=== PATIENT | male | born 1985 | race Caucasian/White ===

== ENCOUNTER 2017-04-02 18:32 | Emergency (ER) | payer SELFPAY ==
[~2017-04-02] VITALS: Ht 180.3 cm; Wt 96.6 kg
[2017-04-02] MEDS ORDERED: GLYCERIN ADULT 1 SUPP.RECT. PR ONE (19:30)
[2017-04-02] MEDS ORDERED: MAGNESIUM CITRATE 296 ML SOLUTION. PO ONE (19:30)
[2017-04-02] MEDS ORDERED: LIDO:MAALOX 1:1 20 ML SINGLE DOSE PO ONE (19:30)
--- NOTE | 2017-04-02 20:40 | PHYS DOC ---
Adult General Chief Complaint Chief Complaint: CONSTIPATION HPI HPI Patient is a 31-year-old male presenting to the emergency department for evaluation of lower abdominal pain rectal pressure. Patient says that the symptoms have been going on for at least several days and causes him significant discomfort and he feels that he cannot have a bowel movement. He has not had a bowel movement in approximately 2-3 days may be small estee but nothing significant. Patient denies any fevers chills nausea vomiting black or bloody stools difficulty urinating. He is in no obvious distress with normal vital signs. Review of Systems Review of Systems Constitutional: Denies fever or chills [] Eyes: Denies change in visual acuity, redness, or eye pain [] HENT: Denies nasal congestion or sore throat [] Respiratory: Denies cough or shortness of breath [] Cardiovascular: No additional information not addressed in HPI [] GI: + abdominal pain. No nausea, vomiting, bloody stools or diarrhea [] : Denies dysuria or hematuria [] Musculoskeletal: Denies back pain or joint pain [] Integument: Denies rash or skin lesions [] Neurologic: Denies headache, focal weakness or sensory changes [] All other systems were reviewed and found to be within normal limits, except as documented in this note. Current Medications Current Medications Current Medications Medications (Trade) Dose Ordered Sig/Michael Start Time Stop Time Status Last Admin Dose Admin Fentanyl Citrate (Fentanyl 2ml Vial) 75 mcg 1X ONCE 04/02/17 20:45 04/02/17 20:46 Glycerin (Sani-Supp Adult) 1 supp 1X ONCE 04/02/17 19:30 04/02/17 19:31 DC 04/02/17 19:42 1 SUPP Ketorolac Tromethamine (Toradol) 30 mg 1X ONCE 04/02/17 20:45 04/02/17 20:46 Magnesium Citrate (Citroma) 296 ml 1X ONCE 04/02/17 19:30 04/02/17 19:31 DC 04/02/17 19:42 296 ML Multi-Ingredient Mouthwash/Gargle (Gi Cocktail) 20 ml 1X ONCE 04/02/17 19:30 04/02/17 19:31 DC 04/02/17 19:42 20 ML Allergies Allergies Allergies Coded Allergies Type Severity Reaction Last Updated Verified No Known Drug Allergies 04/02/17 No Physical Exam Physical Exam Constitutional: Well developed, well nourished, no acute distress, non-toxic appearance. [] HENT: Normocephalic, atraumatic, bilateral external ears normal, oropharynx moist, no oral exudates, nose normal. [] Eyes: PERRLA, EOMI, conjunctiva normal, no discharge. [] Neck: Normal range of motion, no tenderness, supple, no stridor. [] Cardiovascular:Heart rate regular rhythm, no murmur [] Lungs & Thorax: Bilateral breath sounds clear to auscultation [] Abdomen: Bowel sounds normal, soft, no tenderness, no masses, no pulsatile masses. Rectal examination revealed empty vault with no obvious impaction he did have tenderness with palpation internally but there is no external hemorrhoids or fissure noted. No gross blood Skin: Warm, dry, no erythema, no rash. [] Back: No tenderness, no CVA tenderness. [] Extremities: No tenderness, no cyanosis, no clubbing, ROM intact, no edema. [] Neurologic: Alert and oriented X 3, normal motor function, normal sensory function, no focal deficits noted. [] EKG EKG [] Radiology/Procedures Radiology/Procedures CT abdomen and pelvis with contrast TECHNIQUE: Helical CT imaging of the abdomen and pelvis was acquired with 75 mL Omnipaque 300 intravenous contrast. HISTORY: Lower abdominal pain and constipation. Abdomen findings: Small calcified granuloma right lung base. Disc height loss and disc bulges lower lumbar spine. Lung bases unremarkable. Nonspecific 1 cm hypodense lesion segment 7 of the liver. There may be a small 3 mm right renal lower pole calculus. Gallbladder, pancreas, spleen, adrenals and kidneys are unremarkable. The appendix is negative. No obstruction or inflammatory change of the GI tract. Pelvis findings: Bladder, prostate, rectum and bones are unremarkable. No fluid or adenopathy. IMPRESSION: 1. No acute process. The appendix is negative. 2. 3 mm nonobstructing right renal calculus. 3. Nonspecific 1 cm mildly hypodense lesion of the right hepatic lobe. Exposure: One or more of the following individualized dose reduction techniques were utilized for this examination: 1. Automated exposure control 2. Adjustment of the mA and/or kV according to patient size 3. Use of iterative reconstruction technique Electronically signed by: Fransico Vaughn MD (04/02/2017 10:15 PM) [facility] DICTATED AND SIGNED BY: FRANSICO VAUGHN MD DATE: 04/02/172208 Course & Med Decision Making Course & Med Decision Making Patient has nonspecific symptoms and was thinking morbid impaction however his exam is unremarkable and his acute abdominal series is unremarkable as well. He is still having pain and discomfort so I will need to expand my workup so he will get labs CT treat symptoms and reassess. Patient feeling much better after Toradol and fentanyl and the emergency Department however he says he still feels some pressure sensation that is constant but can become more intense. He is had several bowel movements in the emergency department he says that made him feel somewhat better. His workup is rather unremarkable including no acute causes and no surgical pathology. Patient may be suffering from proctalgia fugax given his complaints are more rectal than abdominal. Patient will be treated supportively as an outpatient with Valium NSAIDs told to follow with primary care provider and I will give him information for GI physician and colorectal surgeon. Patient aware and agreeable with plan for discharge and verbalized understanding of the need for short-term follow-up and strict ED return precautions discussed, worsening pain fevers vomiting or other general concerns. Dragon Disclaimer Dragon Disclaimer This electronic medical record was generated, in whole or in part, using a voice recognition dictation system. Departure Departure: Impression: Primary Impression: Abdominal pain Additional Impression: Rectal pain Disposition: 01 HOME, SELF-CARE Condition: STABLE Referrals: FELICITY HERNANDEZ MD Patient Instructions: Proctalgia Fugax Additional Instructions: Take 400 mg of ibuprofen every 6 hours. The Valium may help with spasm. Eat a soft nonirritating diet and follow with a primary care provider and try and follow up with the specialist's I recommended. Come back to the emergency department with worsening pain fevers vomiting or other general concerns. Scripts Diazepam (VALIUM) 5 Mg Tablet 5 MG PO TID for SPASM, #10 TAB Prov: JUNG MEEKS DO 04/02/17 Problem Qualifiers Primary Impression: Abdominal pain Abdominal location: lower abdomen, unspecified Qualified Codes: R10.30 - Lower abdominal pain, unspecified JUNG MEEKS DO Apr 02, 2017 20:40
[2017-04-02] MEDS ORDERED: KETOROLAC 30 MG/ML VIAL. IV ONE (20:45)
[2017-04-02 21:15] LABS: BASO # 0.1 x10^3/uL (0.0-0.2); BASO % 1 % (0-3); EOS # 0.2 x10^3/uL (0.0-0.7); EOS % 2 % (0-3); HEMOGLOBIN 14.6 g/dL (13.0-17.5); LYMPH # 1.9 x10^3/uL (1.0-4.8); LYMPH % 22 % (24-48); MEAN CORPUSCULAR HEMOGLOBIN 31 pg (25-35); MEAN CORPUSCULAR HGB CONC 35 g/dL (31-37); MEAN CORPUSCULAR VOLUME 90 fL (79-100); MONO # 0.7 x10^3/uL (0.0-1.1); MONO % 8 % (0-9); NEUT # 5.8 x10^3uL (1.8-7.7); NEUT % 67 % (31-73); PLATELET COUNT 256 x10^3/uL (140-400); RED BLOOD COUNT 4.68 x10^6/uL (4.30-5.70); WHITE BLOOD COUNT 8.6 x10^3/uL (4.0-11.0)
[2017-04-02 21:29] LABS: ALBUMIN 3.7 g/dL (3.4-5.0); CALCIUM 8.8 mg/dL (8.5-10.1); GFR 86.1; POTASSIUM 3.7 mmol/L (3.5-5.1); TOTAL BILIRUBIN 0.1 mg/dL (0.2-1.0); TOTAL PROTEIN 7.5 g/dL (6.4-8.2)
[2017-04-02] MEDS ORDERED: CONTRAST GIVEN MC PRN (21:30)
[2017-04-02 21:43] LABS: BACTERIA,URINE 0 /HPF (0-FEW); BILIRUBIN,URINE NEG (NEG); CLARITY,URINE CLEAR; COLOR,URINE YELLOW; GLUCOSE,URINE NEG (NEG); NITRITE,URINE NEG (NEG); UROBILINOGEN,URINE 0.2 mg/dL (0.2 mg/dL); WBC,URINE OCC /HPF (0-4)
[2017-04-02 21:44] LABS: SQUAMOUS EPITHELIAL CELL,UR FEW /LPF
[2017-04-02] MEDS ORDERED: IOHEXOL 300 MG/ML 75 ML VIAL. IV ONE (21:45)
--- NOTE | 2017-04-02 22:18 | RAD ---
CT abdomen and pelvis with contrast TECHNIQUE: Helical CT imaging of the abdomen and pelvis was acquired with 75 mL Omnipaque 300 intravenous contrast. HISTORY: Lower abdominal pain and constipation. Abdomen findings: Small calcified granuloma right lung base. Disc height loss and disc bulges lower lumbar spine. Lung bases unremarkable. Nonspecific 1 cm hypodense lesion segment 7 of the liver. There may be a small 3 mm right renal lower pole calculus. Gallbladder, pancreas, spleen, adrenals and kidneys are unremarkable. The appendix is negative. No obstruction or inflammatory change of the GI tract. Pelvis findings: Bladder, prostate, rectum and bones are unremarkable. No fluid or adenopathy. IMPRESSION: 1. No acute process. The appendix is negative. 2. 3 mm nonobstructing right renal calculus. 3. Nonspecific 1 cm mildly hypodense lesion of the right hepatic lobe. Exposure: One or more of the following individualized dose reduction techniques were utilized for this examination: 1. Automated exposure control 2. Adjustment of the mA and/or kV according to patient size 3. Use of iterative reconstruction technique Electronically signed by: Johnny Vaughn MD (04/02/2017 10:15 PM) [facility]
[2017-04-02] MEDS ORDERED: DIAZ5TAB PO (23:17)
[2017-04-02 23:30] VITALS: BP 120/72
--- NOTE | 2017-04-03 08:22 | RAD ---
Abdominal series including frontal chest radiograph and 3 views of the abdomen 04/02/2017 Indication: Abdominal pain. Constipation. Onset today Comparison study: None Discussion: The lungs are clear. No pneumothorax, effusion, or infiltrate is seen. Heart size is normal. The bowel gas pattern is nonobstructive. No gross pneumoperitoneum is identified. No pathologic calcifications are appreciated. No acute osseous changes are identified. Impression: No radiographic evidence of acute cardiopulmonary or intra-abdominal process
== END 2017-04-02 23:30 | disposition home or self-care (01) ==
LOC: ER 18:32
DX: R10.30 Lower abdominal pain, unspecified (principal); K62.89 Other specified diseases of anus and rectum
CPT/HCPCS: 36415; 74022; 74177; 80053; 81001; 83690; 85025; 96374; 96375; 99285; J1885; J3010; Q9967

== ENCOUNTER 2018-08-06 23:27 | Emergency (ER) | payer SELFPAY ==
[~2018-08-06] VITALS: Ht 177.8 cm; Wt 76.2 kg
[~2018-08-06 23:27] MED LIST: DIAZ5TAB PO
--- NOTE | 2018-08-06 23:30 | ED.ADGEN ---
Past History Past Medical History: Constipation, GERD Past Surgical History: No Surgical History Alcohol Use: Occasionally Drug Use: None Adult General Chief Complaint Chief Complaint ".. I am hurting in my lower mid abdomen.. it been going on a few days.. " HPI HPI Patient is a 32 year old male who presents with above hx and complaints mid and right lower abd. pain . Patient denies any trauma. Patient denies any specific intake of bad food or ill contacts. Patient denies any travel. Patient denies any history immunosuppression. Patient has had episodes in past which was caused by constipation. Patient denies any history immunosuppression. Patient is normally healthy. Patient follows with Review of Systems Review of Systems Constitutional: Denies fever or chills [] Eyes: Denies change in visual acuity, redness, or eye pain [] HENT: Denies nasal congestion or sore throat [] Respiratory: Denies cough or shortness of breath [] Cardiovascular: No additional information not addressed in HPI [] GI: Complains of abdominal pain, nausea. Denies, vomiting, bloody stools or diarrhea [] : Denies dysuria or hematuria [] Musculoskeletal: Denies back pain or joint pain [] Integument: Denies rash or skin lesions [] Neurologic: Denies headache, focal weakness or sensory changes [] Endocrine: Denies polyuria or polydipsia [] All other systems were reviewed and found to be within normal limits, except as documented in this note. Family History Family History Noncontributory Current Medications Current Medications Current Medications Medications (Trade) Dose Ordered Sig/Michael Start Time Stop Time Status Last Admin Dose Admin Famotidine (Pepcid Vial) 20 mg 1X ONCE 08/06/18 23:45 08/06/18 23:46 DC 08/07/18 00:17 20 MG Info (Do NOT chart on this entry -- for MONITORING) 1 each PRN DAILY PRN 08/07/18 03:00 08/07/18 05:26 DC Iohexol (Omnipaque 240 Mg/ml) 50 ml 1X ONCE 08/07/18 02:45 08/07/18 02:50 DC 08/07/18 03:02 50 ML Iohexol (Omnipaque 300 Mg/ml) 75 ml 1X ONCE 08/07/18 02:45 08/07/18 02:50 DC 08/07/18 03:02 75 ML Ketorolac Tromethamine (Toradol 30mg Vial) 30 mg 1X ONCE 08/06/18 23:45 08/06/18 23:46 DC 08/07/18 00:17 30 MG Lactated Ringer's 1,000 ml @ 1,000 mls/hr Q1H 08/06/18 23:45 08/07/18 00:44 DC 08/07/18 00:16 1,000 MLS/HR Magnesium Hydroxide (Milk Of Magnesia) 2,400 mg 1X ONCE 08/06/18 23:45 08/06/18 23:46 DC 08/07/18 00:16 2,400 MG Magnesium Citrate (Citroma) 296 ml 1X ONCE 08/07/18 04:30 08/07/18 04:31 DC 08/07/18 04:58 296 ML Ondansetron HCl (Zofran) 8 mg 1X ONCE 08/06/18 23:45 08/06/18 23:46 DC 08/07/18 00:18 8 MG Allergies Allergies Allergies Coded Allergies Type Severity Reaction Last Updated Verified No Known Drug Allergies 04/02/17 No Physical Exam Physical Exam Constitutional: Well developed, well nourished, mild distress, non-toxic appearance. [] HENT: Normocephalic, atraumatic, bilateral external ears normal, oropharynx moist, no oral exudates, nose normal. [] Eyes: PERRLA, EOMI, conjunctiva normal, no discharge. [] Neck: Normal range of motion, no tenderness, supple, no stridor. [] Cardiovascular:Heart rate regular rhythm, no murmur [] Lungs & Thorax: Bilateral breath sounds clear to auscultation [] Abdomen: Bowel sounds normal, soft, mild generalized mid abdomen tenderness, no masses, no pulsatile masses. [] Distended. Patient declines rectal exam at this time. Skin: Warm, dry, no erythema, no rash. [] Back: No tenderness, no CVA tenderness. [] Extremities: No tenderness, no cyanosis, no clubbing, ROM intact, no edema. [] No psoas sign Neurologic: Alert and oriented X 3, normal motor function, normal sensory function, no focal deficits noted. [] Psychologic: Affect normal, judgement normal, mood normal. [] Current Patient Data Lab Results Laboratory Tests Test 08/07/18 00:05 08/07/18 01:15 White Blood Count 7.8 x10^3/uL (4.0-11.0) Red Blood Count 4.98 x10^6/uL (4.30-5.70) Hemoglobin 15.2 g/dL (13.0-17.5) Hematocrit 44.4 % (39.0-53.0) Mean Corpuscular Volume 89 fL (79-100) Mean Corpuscular Hemoglobin 31 pg (25-35) Mean Corpuscular Hemoglobin Concent 34 g/dL (31-37) Red Cell Distribution Width 12.9 % (11.5-14.5) Platelet Count 244 x10^3/uL (140-400) Neutrophils (%) (Auto) 73 % (31-73) Lymphocytes (%) (Auto) 15 % (24-48) L Monocytes (%) (Auto) 10 % (0-9) H Eosinophils (%) (Auto) 1 % (0-3) Basophils (%) (Auto) 1 % (0-3) Neutrophils # (Auto) 5.7 x10^3uL (1.8-7.7) Lymphocytes # (Auto) 1.2 x10^3/uL (1.0-4.8) Monocytes # (Auto) 0.7 x10^3/uL (0.0-1.1) Eosinophils # (Auto) 0.1 x10^3/uL (0.0-0.7) Basophils # (Auto) 0.1 x10^3/uL (0.0-0.2) Prothrombin Time 10.6 SEC (9.4-11.4) Prothrombin Time INR 1.1 (0.9-1.1) PTT 29 SEC (23-33) Sodium Level 139 mmol/L (136-145) Potassium Level 3.5 mmol/L (3.5-5.1) Chloride Level 103 mmol/L (98-107) Carbon Dioxide Level 25 mmol/L (21-32) Anion Gap 11 (6-14) Blood Urea Nitrogen 8 mg/dL (8-26) Creatinine 1.2 mg/dL (0.7-1.3) Estimated GFR (Cockcroft-Gault) 69.3 Glucose Level 120 mg/dL (70-99) H Calcium Level 9.1 mg/dL (8.5-10.1) Total Bilirubin 0.4 mg/dL (0.2-1.0) Direct Bilirubin 0.1 mg/dL (0.0-0.2) Aspartate Amino Transferase (AST) 12 U/L (15-37) L Alanine Aminotransferase (ALT) 20 U/L (16-63) Alkaline Phosphatase 81 U/L (46-116) Troponin I Quantitative < 0.017 ng/mL (0-0.055) Total Protein 6.6 g/dL (6.4-8.2) Albumin 3.4 g/dL (3.4-5.0) Amylase Level 17 U/L (25-115) L Lipase 97 U/L (73-393) Urine Collection Type Unknown Urine Color Yellow Urine Clarity Clear Urine pH 6.0 Urine Specific [place] 1.025 Urine Protein Trace (NEG-TRACE) Urine Glucose (UA) Neg mg/dL (NEG) Urine Ketones (Stick) Trace mg/dL (NEG) Urine Blood Neg (NEG) Urine Nitrite Neg (NEG) Urine Bilirubin Neg (NEG) Urine Urobilinogen Dipstick 2 mg/dL (0.2 mg/dL) Urine Leukocyte Esterase Neg (NEG) Urine RBC 0 /HPF (0-2) Urine WBC Occ /HPF (0-4) Urine Squamous Epithelial Cells Occ /LPF Urine Bacteria 0 /HPF (0-FEW) Urine Opiates Screen Neg (NEG) Urine Methadone Screen Neg (NEG) Urine Barbiturates Neg (NEG) Urine Phencyclidine Screen Neg (NEG) Urine Amphetamine/Methamphetamine Pos (NEG) Urine Benzodiazepines Screen Neg (NEG) Urine Cocaine Screen Neg (NEG) Urine Cannabinoids Screen Neg (NEG) Urine Ethyl Alcohol Neg (NEG) EKG EKG [] Radiology/Procedures Radiology/Procedures My interpretation of acute abdomen film shows no acute cardiopulmonary findings. Does have stool in colon. Nonobstructive bowel gas pattern CT of abdomen showed no gross acute surgical processes. See formal report when available[] [address] [id number] IMAGING REPORT Signed PATIENT: MAXX MORIN ACCOUNT: [id number] : 1985 LOCATION: ER AGE: 32 SEX: M EXAM STATUS: REG ER ORD. PHYSICIAN: YOLIE OLIVEIRA MD REASON: abdomen pain PROCEDURE: CT ABD PELV W/ORAL&IV CONTRAST CT abdomen and pelvis with contrast: Reason for examination: Abdominal pain. Helical images were obtained through the abdomen pelvis with intravenous administration of 75 cc Omnipaque 300 and oral contrast. Reconstruction was performed in sagittal and coronal planes. Exposure: One or more of the following individualized dose reduction techniques were utilized for this examination: 1. Automated exposure control 2. Adjustment of the mA and/or kV according to patient size 3. Use of iterative reconstruction technique. The lung bases are clear. The heart size is normal with no pericardial effusion evident. The liver show small hypodense lesions probably representing cysts in the right lobe measuring 5.4 and 9.5 mm in size. No abnormality seen at the spleen, adrenal glands, pancreas or gallbladder. The abdominal aorta and inferior vena cava show no acute abnormalities. The colon shows no diverticulosis or diverticulitis or colitis. No abnormality seen at the appendix. The small intestinal tract shows no abnormal dilatation or wall thickening and no obstruction. No abnormality seen at the stomach but there is a large amount of gastric content present. The kidneys show no renal masses, renal calculi, hydronephrosis or evidence of obstructive uropathy. No abnormality seen at the bladder, prostate gland or seminal vesicles. No free fluid or free air is seen in the abdomen or pelvis. IMPRESSION: Small subcentimeter hypodense lesions probably representing cysts in the liver. Large amount of gastric content. No bowel obstruction. No abnormality at the appendix. No obstructive uropathy. Electronically signed by: Yamileth Cristina MD (08/07/2018 4:07 AM) [facility] Course & Med Decision Making Course & Med Decision Making Pertinent Labs and Imaging studies reviewed. (See chart for details) A she encouraged to remain on a clear fluid diet only until stooling regularly. Push clear fluids. No solids or milk products for the next 2 days. Must allow bowel rest. Return if any concerns. Follow-up primary care.. [] Final Impression Final Impression 1. Abdomen pain 2. Dehydration[] 3. Constipation 4. Mildly elevated glucose 120 Dragon Disclaimer Dragon Disclaimer This electronic medical record was generated, in whole or in part, using a voice recognition dictation system. Discharge Summary Visit Information Final Diagnosis Problems Medical Problems: (1) Constipation Status: Acute (2) Pain in the abdomen Status: Acute Brief Hospital Course Allergies Allergies Coded Allergies Type Severity Reaction Last Updated Verified No Known Drug Allergies 04/02/17 No Lab Results Laboratory Tests Test 08/07/18 00:05 08/07/18 01:15 White Blood Count 7.8 x10^3/uL (4.0-11.0) Red Blood Count 4.98 x10^6/uL (4.30-5.70) Hemoglobin 15.2 g/dL (13.0-17.5) Hematocrit 44.4 % (39.0-53.0) Mean Corpuscular Volume 89 fL (79-100) Mean Corpuscular Hemoglobin 31 pg (25-35) Mean Corpuscular Hemoglobin Concent 34 g/dL (31-37) Red Cell Distribution Width 12.9 % (11.5-14.5) Platelet Count 244 x10^3/uL (140-400) Neutrophils (%) (Auto) 73 % (31-73) Lymphocytes (%) (Auto) 15 % (24-48) Monocytes (%) (Auto) 10 % (0-9) Eosinophils (%) (Auto) 1 % (0-3) Basophils (%) (Auto) 1 % (0-3) Neutrophils # (Auto) 5.7 x10^3uL (1.8-7.7) Lymphocytes # (Auto) 1.2 x10^3/uL (1.0-4.8) Monocytes # (Auto) 0.7 x10^3/uL (0.0-1.1) Eosinophils # (Auto) 0.1 x10^3/uL (0.0-0.7) Basophils # (Auto) 0.1 x10^3/uL (0.0-0.2) Prothrombin Time 10.6 SEC (9.4-11.4) Prothromb Time International Ratio 1.1 (0.9-1.1) Activated Partial Thromboplast Time 29 SEC (23-33) Sodium Level 139 mmol/L (136-145) Potassium Level 3.5 mmol/L (3.5-5.1) Chloride Level 103 mmol/L (98-107) Carbon Dioxide Level 25 mmol/L (21-32) Anion Gap 11 (6-14) Blood Urea Nitrogen 8 mg/dL (8-26) Creatinine 1.2 mg/dL (0.7-1.3) Estimated GFR (Cockcroft-Gault) 69.3 Glucose Level 120 mg/dL (70-99) Calcium Level 9.1 mg/dL (8.5-10.1) Total Bilirubin 0.4 mg/dL (0.2-1.0) Direct Bilirubin 0.1 mg/dL (0.0-0.2) Aspartate Amino Transf (AST/SGOT) 12 U/L (15-37) Alanine Aminotransferase (ALT/SGPT) 20 U/L (16-63) Alkaline Phosphatase 81 U/L (46-116) Troponin I Quantitative < 0.017 ng/mL (0-0.055) Total Protein 6.6 g/dL (6.4-8.2) Albumin 3.4 g/dL (3.4-5.0) Amylase Level 17 U/L (25-115) Lipase 97 U/L (73-393) Urine Collection Type Unknown Urine Color Yellow Urine Clarity Clear Urine pH 6.0 Urine Specific [place] 1.025 Urine Protein Trace (NEG-TRACE) Urine Glucose (UA) Neg mg/dL (NEG) Urine Ketones (Stick) Trace mg/dL (NEG) Urine Blood Neg (NEG) Urine Nitrite Neg (NEG) Urine Bilirubin Neg (NEG) Urine Urobilinogen Dipstick 2 mg/dL (0.2 mg/dL) Urine Leukocyte Esterase Neg (NEG) Urine RBC 0 /HPF (0-2) Urine WBC Occ /HPF (0-4) Urine Squamous Epithelial Cells Occ /LPF Urine Bacteria 0 /HPF (0-FEW) Urine Opiates Screen Neg (NEG) Urine Methadone Screen Neg (NEG) Urine Barbiturates Neg (NEG) Urine Phencyclidine Screen Neg (NEG) Urine Amphetamine/Methamphetamine Pos (NEG) Urine Benzodiazepines Screen Neg (NEG) Urine Cocaine Screen Neg (NEG) Urine Cannabinoids Screen Neg (NEG) Urine Ethyl Alcohol Neg (NEG) Brief Hospital Course Mr. Morin is a 32 old male who presented with abdomen pain. Suspect constipation- Discharge Information Condition at Discharge: Improved, Stable Disposition/Orders: D/C to Home Dischare Medications Current Medications Lactated Ringer's 1,000 ml @ 1,000 mls/hr Q1H IV Last administered on 08/07/18at 00:16; Admin Dose 1,000 MLS/HR; Start 08/06/18 at 23:45; Stop 08/07/18 at 00:44; Status DC Ondansetron HCl (Zofran) 8 mg 1X ONCE IV Last administered on 08/07/18at 00:18; Admin Dose 8 MG; Start 08/06/18 at 23:45; Stop 08/06/18 at 23:46; Status DC Famotidine (Pepcid Vial) 20 mg 1X ONCE IVP Last administered on 08/07/18at 00:17; Admin Dose 20 MG; Start 08/06/18 at 23:45; Stop 08/06/18 at 23:46; Status DC Ketorolac Tromethamine (Toradol 30mg Vial) 30 mg 1X ONCE IV Last administered on 08/07/18at 00:17; Admin Dose 30 MG; Start 08/06/18 at 23:45; Stop 08/06/18 at 23:46; Status DC Magnesium Hydroxide (Milk Of Magnesia) 2,400 mg 1X ONCE PO Last administered on 08/07/18at 00:16; Admin Dose 2,400 MG; Start 08/06/18 at 23:45; Stop 08/06/18 at 23:46; Status DC Iohexol (Omnipaque 300 Mg/ml) 75 ml 1X ONCE IV Last administered on 08/07/18at 03:02; Admin Dose 75 ML; Start 08/07/18 at 02:45; Stop 08/07/18 at 02:50; Status DC Iohexol (Omnipaque 240 Mg/ml) 50 ml 1X ONCE PO Last administered on 08/07/18at 03:02; Admin Dose 50 ML; Start 08/07/18 at 02:45; Stop 08/07/18 at 02:50; Status DC Info (Do NOT chart on this entry -- for MONITORING) 1 each PRN DAILY PRN MC SEE COMMENTS; Start 08/07/18 at 03:00; Stop 08/07/18 at 05:26; Status DC Magnesium Citrate (Citroma) 296 ml 1X ONCE PO Last administered on 08/07/18at 04:58; Admin Dose 296 ML; Start 08/07/18 at 04:30; Stop 08/07/18 at 04:31; Status DC Active Scripts Active Valium (Diazepam) 5 Mg Tablet 5 Mg PO TID Rosaura Disclaimer This chart was dictated in whole or in part using Voice Recognition software in a busy, high-work load, and often noisy Emergency Department environment. It may contain unintended and wholly unrecognized errors or omissions. YOLIE OLIVEIRA MD Aug 06, 2018 23:30
[2018-08-06] MEDS ORDERED: MAGNESIUM HYDROXIDE 2,400 MG/30 ML ORAL.SUSP. PO ONE (23:45)
[2018-08-06] MEDS ORDERED: KETOROLAC 30 MG/ML VIAL. IV ONE (23:45)
[2018-08-06] MEDS ORDERED: FAMOTIDINE 20 MG/2 ML VIAL IVP ONE (23:45)
[2018-08-06] MEDS ORDERED: ONDANSETRON PF 4 MG/2 ML VIAL. IV ONE (23:45)
[2018-08-06] MEDS ORDERED: IV RINGERS SOLUTION,LACTATED 1,000 ML IV SCH (23:45)
[2018-08-07 00:24] LABS: BASO # 0.1 x10^3/uL (0.0-0.2); BASO % 1 % (0-3); EOS # 0.1 x10^3/uL (0.0-0.7); EOS % 1 % (0-3); HEMATOCRIT 44.4 % (39.0-53.0); HEMOGLOBIN 15.2 g/dL (13.0-17.5); LYMPH # 1.2 x10^3/uL (1.0-4.8); LYMPH % 15 % (24-48); MEAN CORPUSCULAR HEMOGLOBIN 31 pg (25-35); MEAN CORPUSCULAR HGB CONC 34 g/dL (31-37); MEAN CORPUSCULAR VOLUME 89 fL (79-100); MONO # 0.7 x10^3/uL (0.0-1.1); MONO % 10 % (0-9); NEUT # 5.7 x10^3uL (1.8-7.7); NEUT % 73 % (31-73); PLATELET COUNT 244 x10^3/uL (140-400); RED BLOOD COUNT 4.98 x10^6/uL (4.30-5.70); RED CELL DISTRIBUTION WIDTH 12.9 % (11.5-14.5); WHITE BLOOD COUNT 7.8 x10^3/uL (4.0-11.0)
[2018-08-07 00:37] LABS: ALBUMIN 3.4 g/dL (3.4-5.0); CALCIUM 9.1 mg/dL (8.5-10.1); CREATININE 1.2 mg/dL (0.7-1.3); DIRECT BILIRUBIN 0.1 mg/dL (0.0-0.2); GFR 69.3; POTASSIUM 3.5 mmol/L (3.5-5.1); TOTAL BILIRUBIN 0.4 mg/dL (0.2-1.0); TOTAL PROTEIN 6.6 g/dL (6.4-8.2)
[2018-08-07 02:08] LABS: BARBITURATES NEG (NEG); BENZODIAZEPINES NEG (NEG); CANNABINOIDS NEG (NEG); COCAINE NEG (NEG); METHADONE NEG (NEG); OPIATES NEG (NEG); PHENCYCLIDINE NEG (NEG)
[2018-08-07 02:10] LABS: BILIRUBIN,URINE NEG (NEG); CLARITY,URINE CLEAR; COLOR,URINE YELLOW; GLUCOSE,URINE NEG (NEG)
[2018-08-07 02:11] LABS: BACTERIA,URINE 0 /HPF (0-FEW); NITRITE,URINE NEG (NEG); RBC,URINE 0 /HPF (0-2); SQUAMOUS EPITHELIAL CELL,UR OCC /LPF; UROBILINOGEN,URINE 2 mg/dL (0.2 mg/dL); WBC,URINE OCC /HPF (0-4)
[2018-08-07 02:28] LABS: AMPHETAMINE/METHAMPHETAMINE POS (NEG)
--- NOTE | 2018-08-07 02:40 | RAD ---
Acute abdominal series with PA chest: Reason for examination: Abdominal pain. The heart size is normal. Mediastinum is unremarkable. Lung henry are clear. No acute bony abnormalities are seen. There is no organomegaly. Psoas muscles are symmetric. Bowel gas pattern is normal obstructive. No abnormal calcifications are seen. No acute bony abnormalities are present in the lumbar spine or pelvis. IMPRESSION: No acute cardiopulmonary disease. Nonspecific nonobstructive bowel gas pattern. Electronically signed by: Yamileth Cristina MD (08/07/2018 2:38 AM) [facility]
[2018-08-07] MEDS ORDERED: IOHEXOL 300 MG/ML 75 ML VIAL. IV ONE (02:45)
[2018-08-07] MEDS ORDERED: IOHEXOL 240 MG/ML 50ML VIAL. PO ONE (02:45)
[2018-08-07] MEDS ORDERED: CONTRAST GIVEN MC PRN (03:00)
--- NOTE | 2018-08-07 04:10 | RAD ---
CT abdomen and pelvis with contrast: Reason for examination: Abdominal pain. Helical images were obtained through the abdomen pelvis with intravenous administration of 75 cc Omnipaque 300 and oral contrast. Reconstruction was performed in sagittal and coronal planes. Exposure: One or more of the following individualized dose reduction techniques were utilized for this examination: 1. Automated exposure control 2. Adjustment of the mA and/or kV according to patient size 3. Use of iterative reconstruction technique. The lung bases are clear. The heart size is normal with no pericardial effusion evident. The liver show small hypodense lesions probably representing cysts in the right lobe measuring 5.4 and 9.5 mm in size. No abnormality seen at the spleen, adrenal glands, pancreas or gallbladder. The abdominal aorta and inferior vena cava show no acute abnormalities. The colon shows no diverticulosis or diverticulitis or colitis. No abnormality seen at the appendix. The small intestinal tract shows no abnormal dilatation or wall thickening and no obstruction. No abnormality seen at the stomach but there is a large amount of gastric content present. The kidneys show no renal masses, renal calculi, hydronephrosis or evidence of obstructive uropathy. No abnormality seen at the bladder, prostate gland or seminal vesicles. No free fluid or free air is seen in the abdomen or pelvis. IMPRESSION: Small subcentimeter hypodense lesions probably representing cysts in the liver. Large amount of gastric content. No bowel obstruction. No abnormality at the appendix. No obstructive uropathy. Electronically signed by: Yamileth Cristina MD (08/07/2018 4:07 AM) [id number]
[2018-08-07] MEDS ORDERED: MAGNESIUM CITRATE 296 ML SOLUTION. PO ONE (04:30)
[2018-08-07 05:05] VITALS: BP 132/53
== END 2018-08-07 05:05 | disposition home or self-care (01) ==
LOC: ER 23:27
DX: K59.00 Constipation, unspecified (principal); E86.0 Dehydration; R73.9 Hyperglycemia, unspecified; K21.9 Gastro-esophageal reflux disease without esophagitis
CPT/HCPCS: 36415; 74022; 74177; 80048; 80076; 80307; 81001; 82150; 83690; 84484; 85025; 85610; 85730; 96361; 96374; 96375; 99285; J1885; J2405; J3490; J7120; Q9966; Q9967